=== PATIENT | female | born 1975 | race Caucasian/White ===

== ENCOUNTER 2024-11-30 16:11 | Outpatient (CLI) | payer OTHER, SELFPAY | END 2024-11-30 16:12 | disposition home or self-care (01) | LOC: NFLDREF 12-03 22:12 | PROVIDERS: PCP Physician Assistant Medical; Referring Provider Family Medicine; Visit Provider Physician Assistant Medical | DX: D64.9 Anemia, unspecified (principal); Z13.29 Encounter for screening for other suspected endocrine disorder; Z13.21 Encounter for screening for nutritional disorder | CPT/HCPCS: 82607; 83540; 83550; 84443 ==

== ENCOUNTER 2024-12-09 09:44 | Outpatient (CLI) | payer OTHER, SELFPAY | END 2024-12-09 09:45 | disposition home or self-care (01) | PROVIDERS: PCP Physician Assistant Medical; Visit Provider Physician Assistant Medical | DX: I10 Essential (primary) hypertension (principal); D64.9 Anemia, unspecified; R97.1 Elevated cancer antigen 125 [CA 125] | CPT/HCPCS: 82088; 84244; 87086 ==

== ENCOUNTER 2025-01-04 13:03 | Outpatient (CLI) | payer OTHER, SELFPAY | END 2025-01-04 13:04 | disposition home or self-care (01) | LOC: LKVREF 13:03 | PROVIDERS: PCP Physician Assistant Medical; Visit Provider Physician Assistant | DX: R30.0 Dysuria (principal) | CPT/HCPCS: 87086 ==

== ENCOUNTER 2025-09-08 08:39 | Outpatient (CLI) | payer OTHER, SELFPAY | END 2025-09-08 08:40 | disposition home or self-care (01) | PROVIDERS: PCP Physician Assistant Medical; Visit Provider Physician Assistant Medical | DX: I10 Essential (primary) hypertension (principal); D64.9 Anemia, unspecified; R97.1 Elevated cancer antigen 125 [CA 125] | CPT/HCPCS: 80053; 80061; 82043; 82570; 82728; 82746; 83835; 86304 ==